=== PATIENT | female | born 1940 | race Hispanic/Latino ===

== ENCOUNTER → 2018-08-26 | Outpatient (CLI) | payer MEDICARE ==
[~2018-08-26] VITALS: Ht 160 cm; Wt 81.6 kg
[~2018-08-26] MED LIST: AMLO10TA7 PO; CHOL500050 PO; LISI10TA7 PO; REGADENOSON 0.4 MG/5 ML PF SYG IVP SCH
== END | disposition home or self-care (01) ==
LOC: SHCH 08:41
PROVIDERS: ATTEND Internal Medicine Cardiovascular Disease
DX: R06.09 Other forms of dyspnea (principal); R06.02 Shortness of breath
CPT/HCPCS: 78452; 93017; 96374; A9500 ×2; J2785

== ENCOUNTER → 2019-09-17 | Outpatient (CLI) | payer MEDICARE ==
[~2019-09-17] MED LIST changes: -REGADENOSON 0.4 MG/5 ML PF SYG IVP SCH
== END | disposition home or self-care (01) ==
LOC: RAH 11:55
PROVIDERS: ATTEND Urology
DX: K57.30 Diverticulosis of large intestine without perforation or abscess without bleeding (principal); N20.0 Calculus of kidney; R91.8 Other nonspecific abnormal finding of lung field; J98.11 Atelectasis; K57.10 Diverticulosis of small intestine without perforation or abscess without bleeding; I70.0 Atherosclerosis of aorta; M47.815 Spondylosis without myelopathy or radiculopathy, thoracolumbar region; Z90.49 Acquired absence of other specified parts of digestive tract; Z90.710 Acquired absence of both cervix and uterus
CPT/HCPCS: 74176

== ENCOUNTER 2021-01-31 20:44 | Emergency (ER) | payer MEDICARE ==
[~2021-01-31] VITALS: Ht 162.6 cm; Wt 81.6 kg
[~2021-01-31 20:44] MED LIST changes: +AMLO-258 PO; -AMLO10TA7 PO; +LISI10TA24 PO; -LISI10TA7 PO
[2021-01-31 20:46] VITALS: BP 160/78
== END 2021-01-31 20:48 | disposition left against medical advice (07) ==
LOC: EDH 20:44
DX: M25.511 Pain in right shoulder (principal); Z53.21 Procedure and treatment not carried out due to patient leaving prior to being seen by health care provider

== ENCOUNTER → 2022-02-07 | Outpatient (CLI) | payer OTHER | END | disposition home or self-care (01) | LOC: RAH 15:52 | PROVIDERS: ATTEND Urology | DX: N20.0 Calculus of kidney (principal); M41.86 Other forms of scoliosis, lumbar region | CPT/HCPCS: 74018 ==

== ENCOUNTER 2024-04-16 06:50 | Observation (INO) | payer OTHER ==
[2024-04-09 13:09] LABS: BASOPHILS # (AUTO) 0.03 K/uL (0.00-0.20); BASOPHILS % (AUTO) 0.5 % (0.0-5.0); EOSINOPHILS # (AUTO) 0.08 K/uL (0.00-0.70); EOSINOPHILS % (AUTO) 1.4 % (0.0-8.0); HEMATOCRIT 39.8 % (36-48); IMMATURE GRANULOCYTE ABSOLUTE 0.02 K/uL (0-1); LYMPHOCYTES # (AUTO) 1.5 K/uL (1.0-4.8); LYMPHOCYTES % (AUTO) 25.8 % (21.0-51.0); MEAN CORPUSCULAR HEMOGLOBIN 31.2 pg (27.0-33.0); MEAN CORPUSCULAR HGB CONC 34.9 g/dL (32.0-36.0); MEAN CORPUSCULAR VOLUME 89.2 fL (79-99); MONOCYTES # (AUTO) 0.3 K/uL (0.1-1.0); MONOCYTES % (AUTO) 4.9 % (3.0-13.0); NEUTROPHILS % (AUTO) 67.1 % (40.0-77.0); PLATELET COUNT (AUTO) 308 K/uL (130-400); RED BLOOD CELL COUNT(AUTO) 4.46 MIL/uL (4.00-5.50); WHITE BLOOD COUNT (AUTO) 5.9 K/uL (4.8-10.8)
[2024-04-09 13:19] LABS: ALBUMIN 3.7 g/dL (3.5-5.0); CREATININE 0.6 mg/dL (0.5-1.0); POTASSIUM 3.8 mmol/L (3.5-5.1)
[2024-04-09 13:26] LABS: INR 1.01 (0.85-1.15); PROTHROMBIN TIME 10.9 SEC (9.6-11.6)
[2024-04-09 13:28] LABS: PARTIAL THROMBOPLASTIN TIME 25.9 SEC (26.3-35.5)
[2024-04-09 13:44] VITALS: BP 143/79; PULSE 69; RESP 18; TEMP 97.2
[2024-04-09 14:12] LABS: APPEARANCE,URINE CLEAR (CLEAR); BILIRUBIN,URINE NEGATIVE (NEGATIVE); COLOR,URINE LIGHT-YELLOW (YELLOW); GLUCOSE, URINE (UA) NEGATIVE (NEGATIVE); KETONES,URINE NEGATIVE (NEGATIVE); LEUKOCYTE ESTERASE ,URINE NEGATIVE Leu/uL (NEGATIVE); NITRATE,URINE NEGATIVE (NEGATIVE); OCCULT BLOOD,URINE NEGATIVE (NEGATIVE); PH,URINE 5.5 (5.0-8.0); PROTEIN,URINE NEGATIVE (NEGATIVE); UROBILINOGEN,URINE 0.2 mg/dL (0.2-1.0)
[2024-04-09 15:25] LABS: ADD UA MICROSCOPIC YES
[2024-04-09 15:34] LABS: SQUAMOUS EPITHELIAL CELL,UR RARE /HPF (0-2); WBC,URINE 0-1 /HPF (0-1)
[~2024-04-16] VITALS: Ht 160 cm; Wt 75.7 kg
[2024-04-16] VITALS (26 sets, daily range): BP systolic 91–144; BP diastolic 33–108; PULSE 51–79; RESP 10–18; TEMP 96.9–97.8; O2SAT 96
[2024-04-16] MEDS: ketOROlac 30MG VIAL (30MG/ML) ONE
[2024-04-16] MEDS: BUPIvacaine/PF 0.5% 30ML VIAL ONE
[~2024-04-16 06:50] MED LIST changes: +AMLO-257 PO; -AMLO-258 PO; -CHOL500050 PO; -LISI10TA24 PO; +LISI1TAB51 PO; +VITAD50000 PO
[2024-04-16] MEDS ORDERED: TRANEXAMIC ACID 1000MG/10ML ONE (07:25)
[2024-04-16] MEDS: FAMOTIDINE 20MG VIAL IV ONE (08:19)
[2024-04-16] MEDS: acetaMINOPHEN 1,000 MG/100 ML VIAL IV ONE (08:19)
[2024-04-16] MEDS ORDERED: ketaMINE 50MG/ML SYRINGE 50 MG/ML DISP.SYRIN ONE (08:20)
[2024-04-16] MEDS ORDERED: ROPivacaine 0.5% 5MG/ML 30ML ONE (08:20)
[2024-04-16] MEDS ORDERED: rocuRONium bROMide 10MG/1ML 5ML VL ONE (08:21)
[2024-04-16] MEDS ORDERED: proPOFol 10 MG/ML 20ML VIAL IV ONE (08:21)
[2024-04-16] MEDS ORDERED: LIDOCAINE PF 100MG/5ML (2%) SYRINGE 5ML ONE (08:21)
[2024-04-16] MEDS ORDERED: FENTanyl CITRate PF 50 MCG/1 ML 2ML VIAL ONE (08:22)
[2024-04-16] MEDS: ceFAZolin SODIUM 2 GM VIAL ONE (08:31)
[2024-04-16] MEDS: LACTATED RINGERS 1000ML 1,000 ML IV ONE (08:31)
[2024-04-16] MEDS ORDERED: dexaMETHasone SOD PHOSPHATE 10MG/ML 1ML VIAL ONE (08:56)
[2024-04-16] MEDS ORDERED: ondanSETRON 4MG INJ ONE (08:56)
[2024-04-16] MEDS ORDERED: GLYCOPYRROLATE 0.2 MG/ML 5 ML VIAL ONE (10:37)
[2024-04-16] MEDS ORDERED: NEOSTIGMINE METHYLSULFATE 1MG/ML IV ONE (10:37)
[2024-04-16] MEDS ORDERED: PoTASSium chloRIDE 20MEQ/100ML 100 ML IV PRN ×2 (11:00→14:30)
[2024-04-16] MEDS ORDERED: PoTASSium chloRIDE 20MEQ ER 20 MEQ ERTAB PO PRN ×2 (11:00→14:30)
[2024-04-16] MEDS ORDERED: FERROUS FUMARATE 324 MG TABLET PO PRN (11:00)
[2024-04-16] MEDS ORDERED: ondanSETRON 4MG INJ IVP PRN (11:00)
[2024-04-16] MEDS: 0.9%NACL 1000ML 1,000 ML IV SCH (11:00)
[2024-04-16] MEDS ORDERED: CALCIUM CARB 500MG PO PRN (11:00)
[2024-04-16] MEDS ORDERED: PoTASSium chl 10% ELIXIR 20MEQ 20 MEQ/15 ML UDCUP PO PRN ×2 (11:00→14:30)
[2024-04-16] MEDS: ondanSETRON 4MG INJ ONE (11:35)
[2024-04-16] MEDS: MEPERIDINE-PF 25 MG/ML SYG ONE ×2 (11:36→12:08)
[2024-04-16] MEDS ORDERED: ketOROlac 15MG/ML VIAL (15MG/ML) IV PRN (12:00)
[2024-04-16] MEDS: ketOROlac 15MG/ML VIAL (15MG/ML) ONE (12:08)
[2024-04-16] MEDS: GABApentin 100 MG CAPSULE PO SCH (15:35)
[2024-04-16] MEDS: ceFAZolin SODIUM 2 GM VIAL IVPB SCH (19:35)
[2024-04-16] MEDS: doCUSate SODIUM 100 MG CAP PO SCH (19:35)
[2024-04-17] VITALS: BP 104/56; PULSE 76; RESP 18; TEMP 98.4
[2024-04-17 04:00] VITALS: BP 116/48; PULSE 63; RESP 18; TEMP 98.8
[2024-04-17 04:25] LABS: HEMATOCRIT 31.5 % (36-48); MEAN CORPUSCULAR HEMOGLOBIN 30.9 pg (27.0-33.0); MEAN CORPUSCULAR HGB CONC 34.3 g/dL (32.0-36.0); RED BLOOD CELL COUNT(AUTO) 3.5 MIL/uL (4.00-5.50)
[2024-04-17 04:33] LABS: CREATININE 0.8 mg/dL (0.5-1.0); POTASSIUM 3.8 mmol/L (3.5-5.1)
[2024-04-17 08:00] VITALS: BP 137/61; PULSE 72; RESP 17; TEMP 99.3; O2SAT 97
[2024-04-17] MEDS: ASPIRIN 325MG EC TAB PO SCH (08:23)
[2024-04-17] MEDS: hydroCHLOROthiazide 25 MG TABLET PO SCH (08:25)
[2024-04-17] MEDS: LISINOPRIL 20 MG TABLET PO SCH (08:26)
[2024-04-17] MEDS: CYCLOBENZAPRINE HCL 10 MG TABLET PO PRN (08:27)
[2024-04-17] MEDS: amLODIPine 5 MG TAB PO SCH (08:27)
[2024-04-17] MEDS: traMADol HCL 50 MG TABLET PO PRN (08:28)
[2024-04-17] MEDS: polyETHYLene GLYCol 3350 17 GM POWD.PACK PO SCH (08:30)
[2024-04-17] MEDS ORDERED: NON-FORMULARY MEDICATION 1 EACH (Lisinopril/Hydrochlorothiazide (Lisinopril-Hctz 20-12.5 m PO SCH (09:00)
[2024-04-17 12:00] VITALS: BP 150/73; PULSE 77; RESP 18; TEMP 98.7
[2024-04-17] MEDS: HYDROcodone/APAP 5/325 1 TAB TABLET PO PRN (12:21)
[2024-04-17] MEDS ORDERED: ASPI-891 PO (13:52)
[2024-04-17] MEDS ORDERED: HYDR-4060 PO (13:52)
[2024-04-17] MEDS ORDERED: CYCL-309 PO (13:52)
[2024-04-17] MEDS ORDERED: DOCU-116 PO (13:52)
[2024-04-19] MEDS ORDERED: BisaCODYL 10 MG SUPP.RECT RC PRN (11:00)
[2024-04-23] MEDS ORDERED: ERGOCALCIFEROL (VITAMIN D2) 50,000 UNIT CAPSULE PO SCH (09:00)
== END 2024-04-17 17:37 | disposition home or self-care (01) ==
LOC: DAH 06:50 → DAHIP 06:51 → 4CH 12:30
PROVIDERS: ADMIT Student in an Organized Health Care Education/Training Program; ATTEND Student in an Organized Health Care Education/Training Program
DX: M17.11 Unilateral primary osteoarthritis, right knee (principal); G89.18 Other acute postprocedural pain; D62 Acute posthemorrhagic anemia; I10 Essential (primary) hypertension; Z79.899 Other long term (current) drug therapy; Z90.710 Acquired absence of both cervix and uterus
CPT/HCPCS: 36415; 73560; 80048; 81001; 82040; 84134; 85025; 85027; 85610; 85730; 87641; 93005; 96365; 96366; G0378; J1100; J1885; J2001; J2175; J2405; J2704; J2710; J2795; J3010; J3490; J7120; A4215; A4221; A4222; A4223; A4649; A4663; A4930; A5120; A6255; C1713; C1776; G0168; J0665; J0690